=== PATIENT | male | born 1975 | race Caucasian/White ===

== ENCOUNTER 2024-11-30 13:11 | Emergency (ER) | payer OTHER ==
[2024-11-30 15:02] VITALS: BP 132/82; PULSE 66
== END 2024-11-30 15:02 | disposition home or self-care (01) ==
LOC: MW.ED 13:11
DX: S93.402A Sprain of unspecified ligament of left ankle, initial encounter (principal); I10 Essential (primary) hypertension; Z88.8 Allergy status to other drugs, medicaments and biological substances; Z79.899 Other long term (current) drug therapy; Z90.49 Acquired absence of other specified parts of digestive tract; X58.XXXA Exposure to other specified factors, initial encounter
CPT/HCPCS: 73590-26-LT; 73590-LT; 73610-26-LT; 73610-LT; 73620-26-LT; 73620-LT; 99282; 99283